=== PATIENT | female | born 1980 | race Caucasian/White ===

== ENCOUNTER 2016-09-14 20:18 | Emergency (ER) | payer SELFPAY ==
[2016-09-14 20:26] VITALS: BP 142/76; PULSE 79; TEMP 98; BMI 40.2
[2016-09-14 21:35] LABS: URINE APPEARANCE CLEAR; URINE BILIRUBIN NEGATIVE (NEGATIVE); URINE BLOOD 1+ (NEGATIVE); URINE COLOR LTYELLOW; URINE GLUCOSE (UA) NEGATIVE (NEGATIVE); URINE KETONE NEGATIVE (NEGATIVE); URINE LEUK ESTERASE 3+ (NEGATIVE); URINE NITRITE NEGATIVE (NEGATIVE); URINE PROTEIN NEGATIVE (NEGATIVE); URINE UROBILINOGEN NEGATIVE E.U./dl (0.2-1.0)
[2016-09-14 21:37] LABS: URINE BACTERIA RARE /hpf (NONE SEEN); URINE HYALINE CAST 1 /lpf; URINE MUCUS RARE; URINE RBC 7 /hpf (0-3); URINE WBC 33 /hpf (3-5)
--- NOTE | 2016-09-14 23:18 | PDOC ---
History of Present Illness <Naila Nayak - Last Filed: 09/15/16 01:47> - History of Present Illness Initial Comments: 09/14/16 23:18 Patient is a 36 year old female LMP August 21, C/S x 1 complaining of pain and vaginal spotting since yesterday. States she should be expecting her period but has an abnormal period in August. States was spotting yesterday, which is now resolved but still has crampy pain 5/10 and so present for eval. Denies dysuria, fever, chills, nausea, vomiting. PMHX: as above PsocHX; neg etoh, cig, drug Pfamhx: noncontributory ALL: NKDA GENERAL/CONSTITUTIONAL: [No fever or chills. No weakness. No weight change.] HEAD, EYES, EARS, NOSE AND THROAT: [No change in vision. No ear pain or discharge. No sore throat.] CARDIOVASCULAR: [No chest pain or shortness of breath.] RESPIRATORY: [No cough, wheezing, or hemoptysis.] GASTROINTESTINAL: [No nausea, vomiting, diarrhea or constipation. No rectal bleeding.] GENITOURINARY: [No dysuria, frequency, or change in urination.] MUSCULOSKELETAL: [No joint or muscle swelling or pain. No neck or back pain.] SKIN AND BREASTS: [No rash or easy bruising.] NEUROLOGIC: [No headache, vertigo, loss of consciousness, or loss of sensation.] PSYCHIATRIC: [No depression or anxiety.] ENDOCRINE: [No increased thirst. No abnormal weight change.] HEMATOLOGIC/LYMPHATIC: [No anemia, easy bleeding, or history of blood clots.] ALLERGIC/IMMUNOLOGIC: [No hives or skin allergy. No latex allergy.] GENERAL: [The patient is awake, alert, and fully oriented, in no acute distress. ] HEAD: [Normal with no signs of trauma.] EYES: [Pupils equal, round and reactive to light, extraocular movements intact, sclera anicteric, conjunctiva clear.] ENT: [Ears normal, nares patent, oropharynx clear without exudates. Moist mucous membranes.] NECK: [Normal range of motion, supple without lymphadenopathy, JVD, or masses.] LUNGS: [Breath sounds equal, clear to auscultation bilaterally. No wheezes, and no crackles.] HEART: [Regular rate and rhythm, normal S1 and S2 without murmur, rub.] ABDOMEN: [Soft, (+) tenderness lower abd , normoactive bowel sounds. No guarding, no rebound. No masses.] PELVIC: normal external gentalia, creamy discharge in vault with pink stain, os FT EXTREMITIES: [Normal range of motion, no edema. No clubbing or cyanosis. No cords, erythema, or tenderness.] NEUROLOGICAL: [Cranial nerves II through XII grossly intact. Normal speech, normal gait.] PSYCH: [Normal mood, normal affect.] SKIN: [Warm, Dry, normal turgor, no rashes or lesions noted.] <Glory Real - Last Filed: 09/15/16 08:32> - General Chief Complaint: Pain Stated Complaint: ABD PAIN Time Seen by Provider: 09/14/16 21:41 Past History <Naila Nayak - Last Filed: 09/15/16 01:47> - Past Medical History Asthma: No Cancer: No Cardiac Disorders: No Diabetes: Yes HTN: No Seizures: No Thyroid Disease: No - Psycho/Social/Smoking Cessation Hx Suicidal Ideation: No Smoking History: Never smoked Have you smoked in the past 12 months: No Hx Alcohol Use: No Drug/Substance Use Hx: No Hx Substance Use Treatment: No <Glory Real - Last Filed: 09/15/16 08:32> - Past Medical History Allergies/Adverse Reactions: Allergies Allergy/AdvReac Type Severity Reaction Status Date / Time No Known Allergies Allergy Verified 09/14/16 20:23 Home Medications: Ambulatory Orders Dicyclomine HCl [Bentyl] 10 mg PO TID #30 capsule 07/21/16 Simethicone [Phazyme] 250 mg PO TID #30 capsule 07/21/16 Nitrofurantoin Monohyd/M-Cryst [Macrobid -] 100 mg PO BID #14 capsule 09/15/16 *Physical Exam - Vital Signs Last Vital Signs Temp Pulse Resp BP Pulse Ox 98 F 79 20 142/76 100 09/14/16 20:24 09/14/16 20:24 09/14/16 20:24 09/14/16 20:24 09/14/16 20:24 <Naila Nayak - Last Filed: 09/15/16 01:47> - Vital Signs Last Vital Signs Temp Pulse Resp BP Pulse Ox 98 F 79 20 142/76 100 09/14/16 20:24 09/14/16 20:24 09/14/16 20:24 09/14/16 20:24 09/14/16 20:24 <Glory Real - Last Filed: 09/15/16 08:32> ED Treatment Course - LABORATORY CBC & Chemistry Diagram: 09/14/16 23:00 09/14/16 23:00 - ADDITIONAL ORDERS Additional order review: Laboratory Results 09/14/16 09/14/16 09/14/16 23:00 23:00 23:00 Sodium 138 Potassium 4.0 Chloride 102 Carbon Dioxide 25 Anion Gap 11 BUN 9 D Creatinine 0.8 Creat Clearance w eGFR > 60 Random Glucose 119 H Calcium 9.2 Total Bilirubin 0.2 AST 19 ALT 32 Alkaline Phosphatase 81 Total Protein 7.6 Albumin 3.5 Beta HCG, Quant 17703.2 Urine Color Urine Appearance Urine pH Ur Specific [place] Urine Protein Urine Glucose (UA) Urine Ketones Urine Blood Urine Nitrite Urine Bilirubin Urine Urobilinogen Ur Leukocyte Esterase Urine RBC Urine WBC Ur Epithelial Cells Urine Bacteria Hyaline Casts Urine Mucus Urine HCG, Qual Blood Type A POSITIVE Antibody Screen Negative 09/14/16 21:25 Sodium Potassium Chloride Carbon Dioxide Anion Gap BUN Creatinine Creat Clearance w eGFR Random Glucose Calcium Total Bilirubin AST ALT Alkaline Phosphatase Total Protein Albumin Beta HCG, Quant Urine Color Ltyellow Urine Appearance Clear Urine pH 6.0 Ur Specific [place] 1.016 Urine Protein Negative Urine Glucose (UA) Negative Urine Ketones Negative Urine Blood 1+ H Urine Nitrite Negative Urine Bilirubin Negative Urine Urobilinogen Negative Ur Leukocyte Esterase 3+ H Urine RBC 7 Urine WBC 33 Ur Epithelial Cells Few Urine Bacteria Rare Hyaline Casts 1 Urine Mucus Rare Urine HCG, Qual Positive Blood Type Antibody Screen 09/14/16 23:00 RBC 4.33 MCV 86.2 MCHC 33.4 RDW 14.1 MPV 9.2 Neutrophils % 72.3 Lymphocytes % 18.3 D Monocytes % 7.9 Eosinophils % 1.2 Basophils % 0.3 - RADIOLOGY Radiograph Interpretation: 09/15/16 01:47 Exam: Transabdominal and endovaginal OB sonogram and duplex sonography Reviewed by Imaging information systems security developer: Findings: The uterus is anteverted and gravid measures 10.4 x 5.2 x 6.4 cm. Mean sac diameter measurements correspond to gestational age of 6 weeks 2 days. Little sac is present. On endovaginal images the uterus is anteverted. pole measurements correspond to gestational age of 6 weeks 3 days. heart rate is 120 beats per minute. No beck- gestational hematoma is seen. The right ovary measures 3.9 x 2.3 x 2.7 cm and contains a 1.2 cm cyst. Normal arterial flow is seen on color Doppler images. The left ovary is not visualized. No adnexal masses seen. No free fluid seen. Impression: Single live intrauterine gestation of approximately 6 weeks 3 days. No beck-gestational hematoma seen. Right ovarian cyst noted. Normal arterial flow seen on the right. Left ovary not seen. <Naila Nayak - Last Filed: 09/15/16 01:47> - LABORATORY CBC & Chemistry Diagram: 09/14/16 23:00 09/14/16 23:00 - ADDITIONAL ORDERS Additional order review: Laboratory Results 09/14/16 21:25 Urine Color Ltyellow Urine Appearance Clear Urine pH 6.0 Ur Specific [place] 1.016 Urine Protein Negative Urine Glucose (UA) Negative Urine Ketones Negative Urine Blood 1+ H Urine Nitrite Negative Urine Bilirubin Negative Urine Urobilinogen Negative Ur Leukocyte Esterase 3+ H Urine RBC 7 Urine WBC 33 Ur Epithelial Cells Few Urine Bacteria Rare Hyaline Casts 1 Urine Mucus Rare Urine HCG, Qual Positive - RADIOLOGY Radiology Studies Ordered: Category Date Time Status <14WKS US [US] Stat Ultrasound 09/14/16 22:52 Ordered TRANSVAGINAL US PREG [US] Stat Ultrasound 09/14/16 22:51 Ordered <Glory Real - Last Filed: 09/15/16 08:32> Medical Decision Making - Medical Decision Making Patient is a 36 year old female LMP August 21, C/S x 1 complaining of pain and vaginal spotting since yesterday will r/o preg, uti, menstrual cramping 09/15/16 01:27 Laboratory Tests 09/14/16 09/14/16 21:25 23:00 Beta HCG, Quant 91748.2 Urine Color Ltyellow Urine Appearance Clear Urine pH 6.0 Ur Specific [place] 1.016 Urine Protein Negative Urine Glucose (UA) Negative Urine Ketones Negative Urine Blood 1+ H Urine Nitrite Negative Urine Bilirubin Negative Urine Urobilinogen Negative Ur Leukocyte Esterase 3+ H Urine RBC 7 Urine WBC 33 Noted to be therefore we will do workup with ultrasound. Noted patient has a UTI will treat with Macrobid T& S A+ US Single live IU gestation of approx 6 wks 3 days. No beck-gestation hematoma seen. Right ovarian cyst noted. Normal artterial folow seen on the right. Left ovary not seen. Patient is feeling better and wants to go home I discussed the physical exam findings, ancillary test results and final diagnoses with the patient. I answered all of the patient's questions. The patient was satisfied with the care received and felt comfortable with the discharge plan and treatment plan. The Patient agrees to follow up with the primary care physician within 24-72 hours. <Glory Real - Last Filed: 09/15/16 08:32> *DC/Admit/Observation/Transfer <Naila Nayak - Last Filed: 09/15/16 01:47> <Glory Real - Last Filed: 09/15/16 08:32> Diagnosis at time of Disposition: Threatened UTI (urinary tract infection) Qualifiers: Urinary tract infection type: site unspecified Hematuria presence: without hematuria Qualified Code(s): N39.0 - Urinary tract infection, site not specified - Discharge Dispostion Disposition: HOME Condition at time of disposition: Stable - Prescriptions Prescriptions: Nitrofurantoin Monohyd/M-Cryst [Macrobid -] 100 mg PO BID #14 capsule - Patient Instructions Printed Discharge Instructions: DI for Threatened Additional Instructions: You need to follow up with the [facility]BS as soon as you can, Return to the ED for worsening bleeding > 1 pad per hour, continued pain.
[2016-09-14 23:24] LABS: BASOPHIL 0.3 % (0-2.0); EOSINOPHIL 1.2 % (0-4.5); MCH 28.8 pg (25.7-33.7); MCHC 33.4 g/dl (32.0-36.0); MEAN CELL VOLUME 86.2 fl (80-96); MEAN PLT VOLUME 9.2 fl (7.5-11.1); NEUTROPHILS 72.3 % (42.8-82.8); PLATELET COUNT 232 K/MM3 (134-434); RDW 14.1 % (11.6-15.6); WHITE BLOOD COUNT 9.8 K/mm3 (4.0-10.0)
[2016-09-15 00:05] LABS: ALBUMIN 3.5 g/dl (3.4-5.0); ALK PHOS 81 U/L (45-117); ANION GAP 11 (8-16); BILIRUBIN,TOTAL 0.2 mg/dL (0.2-1.0); CALCIUM 9.2 mg/dL (8.5-10.1); CO2 25 mmol/L (21-32); CREATININE 0.8 mg/dL (0.55-1.02); GLUCOSE,RANDOM 119 mg/dL (74-106); SGOT/AST 19 U/L (15-37); SGPT/ALT 32 U/L (12-78); TOT PROT 7.6 g/dl (6.4-8.2)
[2016-09-15] MEDS ORDERED: NITROFURANTOIN MACROCRYSTAL 50 MG CAPSULE (FP) PO SCH (01:45)
[2016-09-15] MEDS ORDERED: NITROFURANTOIN MACROCRYSTAL 50 MG CAPSULE (FP) ONE (02:11)
== END 2016-09-15 01:59 | disposition home or self-care (01) ==
LOC: JER 20:18
DX: O20.0 Threatened abortion (principal); O23.31 Infections of other parts of urinary tract in pregnancy, first trimester; O34.81 Maternal care for other abnormalities of pelvic organs, first trimester; N83.201 Unspecified ovarian cyst, right side; Z3A.01 Less than 8 weeks gestation of pregnancy
CPT/HCPCS: 36415; 76801-TC; 76817-TC; 80053; 81003; 81015; 84702; 84703; 85025; 86850; 86900; 86901; 99282-25

== ENCOUNTER 2019-01-31 20:53 | Emergency (ER) | payer OTHER ==
[2019-01-31 21:02] VITALS: BMI 33.1
--- NOTE | 2019-01-31 22:01 | PDOC ---
History of Present Illness - General Chief Complaint: Respiratory Stated Complaint: COUGH Time Seen by Provider: 01/31/19 21:52 History Source: Patient Exam Limitations: No Limitations - History of Present Illness Initial Comments: 01/31/19 22:21 HISTORY OF PRESENT ILLNESS: This is a 39-year-old woman denies medical history presents emergency department for evaluation of dry cough for 3 weeks and also with a palpable chest mass on the left side of her sternum. Patient reports having upper respiratory type illness +3 weeks ago was had a chronic nagging cough since then. She denies any fevers or chills, shortness of breath, chest pain. Patient noticed the mass approximately one week ago reports that his pain was painless. No recent travel or sick contacts. PAST MEDICAL HISTORY: Denies past medical history SURGICAL HISTORY: Denies ALLERGIES: No known drug allergies REVIEW OF SYSTEMS General/Constitutional: Denies fever or chills. Denies weakness, weight change. HEENT: Denies change in vision. Denies ear pain or discharge. Denies sore throat. Cardiovascular: Denies chest pain or shortness of breath. Respiratory: see HPI Gastrointestinal: Denies nausea, vomiting, diarrhea or constipation. Denies rectal bleeding. Genitourinary: Denies dysuria, frequency, or change in urination. Musculoskeletal: Denies joint or muscle swelling or pain. Denies neck or back pain. Skin and breasts: Denies rash or easy bruising. Neurologic: Denies headache, vertigo, loss of consciousness, or loss of sensation. Psychiatric: Denies depression or anxiety. Endocrine: Denies increased thirst. Denies abnormal weight change. Hematologic/Lymphatic: Denies anemia, easy bleeding, or history of blood clots. Allergic/Immunologic: Denies hives or skin allergy. Denies latex allergy. PHYSICAL EXAM General Appearance: Well-appearing, appropriately dressed. No apparent distress , no intoxication. HEENT: EOMI, PERRLA, normal ENT inspection, normal voice, TMs normal, pharynx normal. No conjunctival pallor. No photophobia, scleral icterus. Neck: Supple. Trachea midline. No tenderness, rigidity, carotid bruit, stridor , lymphadenopathy, or thyromegaly. Respiratory/Chest: Lungs CTAB. No shortness of breath, chest tenderness, respiratory distress, accessory muscle use. No crackles, rales, rhonchi, stridor , wheezing, dullness. Firm non-mobile palpable 2cm x3cm ovoid mass to left sternum. Cardiovascular: RRR. S1, S2. No JVD, murmur, bradycardia, tachycardia. Vascular Pulses: Dorsalis-Pedis (R): 2+, Dorsalis-Pedis (L): 2+ Past History - Past Medical History Allergies/Adverse Reactions: Allergies Allergy/AdvReac Type Severity Reaction Status Date / Time No Known Allergies Allergy Verified 09/14/16 20:23 Home Medications: Ambulatory Orders NK [No Known Home Medication] 02/01/19 Asthma: Yes Cancer: No Cardiac Disorders: No COPD: No Diabetes: No HTN: No Seizures: No Thyroid Disease: No - Reproductive History (#): 7 Para: 7 - Psycho Social/Smoking Cessation Hx Smoking History: Never smoked Have you smoked in the past 12 months: No Hx Alcohol Use: No Drug/Substance Use Hx: No Hx Substance Use Treatment: No *Physical Exam - Vital Signs Last Vital Signs Temp Pulse Resp BP Pulse Ox 98.7 F 108 H 18 129/81 97 01/31/19 20:59 01/31/19 20:59 01/31/19 20:59 01/31/19 20:59 01/31/19 20:59 ED Treatment Course - LABORATORY CBC & Chemistry Diagram: 01/31/19 23:48 01/31/19 23:48 - ADDITIONAL ORDERS Additional order review: Laboratory Results 01/31/19 21:36 Urine HCG, Qual Negative - RADIOLOGY Radiology Studies Ordered: Category Date Time Status CHEST PA & LAT [RAD] Stat Radiology 01/31/19 21:56 Ordered Medical Decision Making - Medical Decision Making 01/31/19 22:27 A/P: 39-year-old female with dry cough for 3 weeks and palpable mass to the left anterior chest wall Chest x-ray as read by me: Cardiac silhouette is within normal limits. No focal infiltrates or consolidations noted. Large hyperdense area present to the left upper her lobe. Same area where masses located. Given palpable masses smaller than appearance on chest x-ray I will get a CT to help identify causes of hyperdense area. CT of the chest without contrast Patient signed out to nurse practitioner Alek for continued evaluation. 02/02/19 16:17 Discharge - Discharge Information Problems reviewed: Yes Clinical Impression/Diagnosis: Cough, Lung mass Disposition: HOME - Follow up/Referral Referrals: Swati Holder MD [Staff Physician] - Call tomorrow Nilson Green MD [Staff Physician] - Call tomorrow - Patient Discharge Instructions Additional Instructions: [place] : [address], [place], [address] [place] [address] Get Directions FAX CALL please call for an appointment return to the ER for any worsening symptoms - Post Discharge Activity
--- NOTE | 2019-01-31 23:03 | PDOC ---
*Physical Exam - Vital Signs Last Vital Signs Temp Pulse Resp BP Pulse Ox 98.7 F 108 H 18 129/81 97 01/31/19 20:59 01/31/19 20:59 01/31/19 20:59 01/31/19 20:59 01/31/19 20:59 ED Treatment Course - LABORATORY CBC & Chemistry Diagram: 01/31/19 23:48 01/31/19 23:48 - ADDITIONAL ORDERS Additional order review: Laboratory Results 01/31/19 21:36 Urine HCG, Qual Negative Medical Decision Making - Medical Decision Making 01/31/19 23:02 Patient seen by the advanced practice provider under my direct supervision. Ancillary testing reviewed as necessary. I agree with plan as outlined by the advanced practice provider. *DC/Admit/Observation/Transfer Diagnosis at time of Disposition: Cough, Lung mass - Discharge Dispostion Disposition: HOME - Referrals Referrals: Swati Holder MD [Staff Physician] - Call tomorrow Nilson Green MD [Staff Physician] - Call tomorrow - Patient Instructions Additional Instructions: [place] : [address], [facility], [address] [place] [address] Get Directions FAX CALL please call for an appointment return to the ER for any worsening symptoms - Post Discharge Activity
--- NOTE | 2019-01-31 23:07 | PDOC ---
*Physical Exam - Vital Signs Last Vital Signs Temp Pulse Resp BP Pulse Ox 98.7 F 108 H 18 129/81 97 01/31/19 20:59 01/31/19 20:59 01/31/19 20:59 01/31/19 20:59 01/31/19 20:59 - Physical Exam General Appearance: Yes: Appropriately Dressed Respiratory/Chest: positive: Lungs Clear, Other (dry cough, nodule palpated left anterior chest) Cardiovascular: positive: Tachycardia ED Treatment Course - LABORATORY CBC & Chemistry Diagram: 01/31/19 23:48 01/31/19 23:48 - ADDITIONAL ORDERS Additional order review: Laboratory Results 01/31/19 21:36 Urine HCG, Qual Negative Medical Decision Making - Medical Decision Making patient reports cough since october and 15 pound weight loss since then. denies fever/ chills. chest pain 02/01/19 01:29 CTA chest :There is no PE or dissection. Heart size is normal. Extensive mediastinal adenopathy is noted with a dominant 6.2 x 4.6 cm anterior mediastinal mass or node. Neoplasm such as lymphoma is considered. The trachea and bronchi are patent. There is no pleural or pericardial effusion. The lungs are clear other than minimal left upper lobe atelectasis related to mass-effect from the mediastinal mass/adenopathy. No fractures identified. The upper abdominal structures are normal. IMPRESSION: Extensive mediastinal adenopathy/mass, possibly lymphoma. 02/01/19 01:33 CT discussed with patient. labs discussed. patient given referrals to Oncology for follow up. strict return precautions reviewed. *DC/Admit/Observation/Transfer Diagnosis at time of Disposition: Cough, Lung mass - Discharge Dispostion Disposition: HOME - Referrals Referrals: Swati Holder MD [Staff Physician] - Call tomorrow Nilson Green MD [Staff Physician] - Call tomorrow - Patient Instructions Additional Instructions: [place] : [address], [facility], [address] [place] [address] Get Directions FAX CALL please call for an appointment return to the ER for any worsening symptoms - Post Discharge Activity
[2019-02-01 00:09] LABS: BASO % 0.3 % (0-2.0); EOS % 1.9 % (0-4.5); HEMATOCRIT 31.9 % (32.4-45.2); HEMOGLOBIN 10.1 GM/dL (10.7-15.3); LYMPH % 15.4 % (8-40); MCHC 31.6 g/dl (32.0-36.0); MEAN CELL VOLUME 75.8 fl (80-96); MEAN PLT VOLUME 8.7 fl (7.5-11.1); MONO % 8.5 % (3.8-10.2); NEUT % 73.9 % (42.8-82.8); PLATELET COUNT 343 K/MM3 (134-434); RBC 4.21 M/mm3 (3.60-5.2); RDW 15.7 % (11.6-15.6); WHITE BLOOD COUNT 11.2 K/mm3 (4.0-10.0)
[2019-02-01 00:25] LABS: INR 1.05 (0.83-1.09); PROTHROMBIN TIME (PATIENT) 12.4 SEC (9.7-13.0)
[2019-02-01 00:28] LABS: ACTIVATED PTT 33.6 SECONDS (25.2-36.5)
[2019-02-01 00:35] LABS: BILIRUBIN,TOTAL 0.2 mg/dL (0.2-1); BLOOD UREA NITROGEN 14.1 mg/dL (7-18); CALCIUM 8.8 mg/dL (8.5-10.1); CREATININE 0.9 mg/dL (0.55-1.3); POTASSIUM 4.2 mmol/L (3.5-5.1); TOT PROT 8.1 g/dl (6.4-8.2)
[2019-02-01 02:05] VITALS: BP 106/73; PULSE 92; TEMP 97.5
== END 2019-02-01 01:45 | disposition home or self-care (01) ==
LOC: JERFT 20:53 → JER 20:53
DX: R05 Cough (principal); R91.8 Other nonspecific abnormal finding of lung field
CPT/HCPCS: 36415; 71046-TC-FY; 71250-TC; 71275-TC; 80053; 84703; 85025; 85610; 85730; 99284-25

== ENCOUNTER 2021-04-25 23:10 | Emergency (ER) | payer OTHER ==
[2021-04-25 23:17] VITALS: BP 127/75; PULSE 91; TEMP 98.8; BMI 42.0
== END 2021-04-26 00:49 | disposition home or self-care (01) ==
LOC: FER 23:10
DX: O26.851 Spotting complicating pregnancy, first trimester (principal); Z3A.01 Less than 8 weeks gestation of pregnancy
CPT/HCPCS: 76801-TC; 99283-25

== ENCOUNTER 2021-05-04 21:45 | Emergency (ER) | payer OTHER ==
[2021-05-04] MEDS ORDERED: ACETAMINOPHEN 500 MG TABLET (FP) PO ONE (21:49)
[2021-05-04 21:58] VITALS: BP 127/65; PULSE 99; TEMP 99; BMI 39.4
[2021-05-04] MEDS ORDERED: ACETAMINOPHEN 500 MG TABLET (FP) ONE (21:58)
[2021-05-07 00:07] LABS: SARS-CoV-2 NAA Detected (Not Detected)
== END 2021-05-04 22:36 | disposition home or self-care (01) ==
LOC: FER 21:45
DX: O98.511 Other viral diseases complicating pregnancy, first trimester (principal); Z3A.01 Less than 8 weeks gestation of pregnancy
CPT/HCPCS: 82962; 87804; 99283-25; C9803; U0003; U0005

== ENCOUNTER 2021-05-11 05:04 | Emergency (ER) | payer OTHER ==
[2021-05-11 05:38] VITALS: BMI 39.4
[2021-05-11] MEDS ORDERED: LACTATED RINGERS SOLUTION 1000 ML INFUS.BAG IV ONE (08:14)
[2021-05-11] MEDS ORDERED: IBUPROFEN 400 MG TABLET (FP) PO ONE (08:14)
[2021-05-11 09:17] LABS: BASO % 0.1 % (0-2.0); EOS % 2.1 % (0-4.5); HEMATOCRIT 37.1 % (32.4-45.2); LYMPH % 23.4 % (8-40); MCH 27.9 pg (25.7-33.7); MCHC 32.3 g/dl (32.0-36.0); MEAN CELL VOLUME 86.4 fl (80-96); MEAN PLT VOLUME 9.2 fl (7.5-11.1); MONO % 7.7 % (3.8-10.2); NEUT % 66.7 % (42.8-82.8); PLATELET COUNT 262 10^3/uL (134-434); RBC 4.29 M/mm3 (3.60-5.2); RDW 13.6 % (11.6-15.6); WHITE BLOOD COUNT 7.1 K/mm3 (4.0-10.0)
[2021-05-11 09:34] LABS: ALBUMIN 3.5 g/dl (3.4-5.0); BLOOD UREA NITROGEN 11.9 mg/dL (7-18); CALCIUM 8.7 mg/dL (8.5-10.1)
[2021-05-11 09:37] LABS: CREATININE 0.9 mg/dL (0.55-1.3)
[2021-05-11 09:39] LABS: BILIRUBIN,TOTAL 0.2 mg/dL (0.2-1); TOT PROT 7.9 g/dl (6.4-8.2)
[2021-05-11 10:53] LABS: EPI CELLS 8 /uL (0-25.1); HYALINE CASTS 0 /uL (0-3.1); URINE APPEARANCE CLEAR; URINE BACTERIA 255 /uL (0-1359); URINE BILIRUBIN NEGATIVE (NEGATIVE); URINE COLOR YELLOW; URINE GLUCOSE (UA) NEGATIVE (NEGATIVE); URINE KETONE NEGATIVE (NEGATIVE); URINE LEUK ESTERASE NEGATIVE (NEGATIVE); URINE NITRITE NEGATIVE (NEGATIVE); URINE PROTEIN NEGATIVE (NEGATIVE); URINE RBC 2 /uL (0-23.9); URINE UROBILINOGEN 0.2 mg/dL (0.2-1.0); URINE WBC 6 /uL (0-25.8)
[2021-05-11 11:26] VITALS: BP 124/87; PULSE 78; TEMP 97.9
== END 2021-05-11 14:21 | disposition home or self-care (01) ==
LOC: JER 05:04
DX: O26.851 Spotting complicating pregnancy, first trimester (principal); Z3A.01 Less than 8 weeks gestation of pregnancy
CPT/HCPCS: 36415; 76830-TC; 80053; 81003; 85025; 99284-25

== ENCOUNTER 2021-08-05 10:00 | Emergency (ER) | payer OTHER ==
[2021-08-05 10:58] LABS: HCG,QUALITATIVE URINE Negative
[2021-08-05 10:59] VITALS: BP 134/85; PULSE 84; TEMP 97.9; BMI 42.0
[2021-08-05 11:28] LABS: EPITHELIAL CELLS FEW /hpf
== END 2021-08-05 11:44 | disposition left against medical advice (07) ==
LOC: FER 10:00
DX: R10.9 Unspecified abdominal pain (principal)
CPT/HCPCS: 36415; 81003; 81015; 84702; 84703; 99283-25